=== PATIENT | male | born 1975 | race Caucasian/White ===

== ENCOUNTER 2017-03-30 01:24 | Emergency (ER) | payer OTHER ==
[~2017-03-30] VITALS: Ht 193 cm; Wt 108.9 kg
[2017-03-30 02:13] LABS: MEAN CORPUSCULAR HEMOGLOBIN 31.8 pg (27.0-33.0); MEAN CORPUSCULAR HGB CONC 34.5 g/dl (32.0-36.5); MEAN CORPUSCULAR VOLUME 92.3 fl (80.0-96.0); RED CELL DISTRIBUTION WIDTH 12.1 % (11.5-14.5); WHITE BLOOD COUNT 8.3 K/mm3 (4.0-10.0)
[2017-03-30 02:34] LABS: METHADONE URINE NEGATIVE (NEGATIVE)
[2017-03-30 02:45] LABS: ALBUMIN 4.2 GM/DL (3.2-5.2); ALKALINE PHOSPHATASE 71 U/L (45-117); ALT/SGPT 38 U/L (12-78); ANION GAP 10 MEQ/L (8-16); AST/SGOT 18 U/L (15-37); BILIRUBIN,DIRECT 0.1 MG/DL (0.0-0.2); BILIRUBIN,TOTAL 0.4 MG/DL (0.2-1.0); BLOOD UREA NITROGEN 8 MG/DL (7-18); CALCIUM LEVEL 8.5 MG/DL (8.5-10.1); CARBON DIOXIDE LEVEL 27 MEQ/L (21-32); CHLORIDE LEVEL 111 MEQ/L (98-107); CREATININE FOR GFR 0.83 MG/DL (0.70-1.30); GLOMERULAR FILTRATION RATE > 60.0 (>60); GLUCOSE, FASTING 96 MG/DL (70-105); POTASSIUM SERUM 4.5 MEQ/L (3.5-5.1); SODIUM LEVEL 148 MEQ/L (136-145); TOTAL PROTEIN 7.7 GM/DL (6.4-8.2)
[2017-03-30 03:15] VITALS: BP 147/89
== END 2017-03-30 03:19 | disposition home or self-care (01) ==
LOC: M ED 02:34
DX: F10.220 Alcohol dependence with intoxication, uncomplicated (principal); Z60.9 Problem related to social environment, unspecified; F17.210 Nicotine dependence, cigarettes, uncomplicated
CPT/HCPCS: 36415; 80048; 80076; 80306; 84443; 85027; 99284; G0480